=== PATIENT | female | born 1990 | race Caucasian/White ===

== ENCOUNTER 2019-02-01 15:05 | Emergency (ER) | payer OTHER ==
[~2019-02-01] VITALS: Ht 177.8 cm; Wt 111.6 kg
[2019-02-01 15:08] VITALS: BP 140/85
[2019-02-01] MEDS ORDERED: LORAZEPAM 1 MG TABLET PO ONE (15:30)
[2019-02-01] MEDS ORDERED: HYDROCODONE/APAP 5/325MG 1 EACH TABLET PO ONE (15:30)
[2019-02-01] MEDS ORDERED: LORAZEPAM 0.5 MG TABLET ONE (15:41)
[2019-02-01] MEDS ORDERED: HYDROCODONE/APAP 5/325MG 1 EACH TABLET ONE (15:41)
[2019-02-01] MEDS ORDERED: KETOROLAC TROMETHAMINE INJ 60 MG/2 ML VIAL IM ONE (17:00)
[2019-02-01] MEDS ORDERED: KETOROLAC TROMETHAMINE INJ 30 MG/ML VIAL ONE (17:02)
--- NOTE | 2019-02-01 17:06 | NUR ---
for discharge- Aftercare Instructions given- verbalized understanding Home w/family Stable. Right Ankle Airsplint applied by KATHLEEN- Kimani Crutches and gait training done by same
== END 2019-02-01 17:10 | disposition home or self-care (01) ==
LOC: ER 15:09
DX: S13.8XXA Sprain of joints and ligaments of other parts of neck, initial encounter (principal); S93.491A Sprain of other ligament of right ankle, initial encounter; S00.83XA Contusion of other part of head, initial encounter; S80.02XA Contusion of left knee, initial encounter; R51 Headache; V49.49XA Driver injured in collision with other motor vehicles in traffic accident, initial encounter; Y93.89 Activity, other specified; Y92.410 Unspecified street and highway as the place of occurrence of the external cause; Y99.8 Other external cause status
CPT/HCPCS: 70450; 72125; 73564; 73610; 96372; 99284; J1885; L0172